=== PATIENT | male | born 2005 | race Hispanic/Latino ===

== ENCOUNTER 2024-04-25 15:46 | Emergency (ER) | payer BC, OTHER ==
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
[2024-04-25] MEDS ORDERED: LIDOCAINE 4% PATCH ONE (16:37)
[2024-04-25 20:34] VITALS: BP 192/97; TEMP 98.2; O2SAT 98
== END 2024-04-25 16:44 | disposition home or self-care (01) ==
LOC: ER 15:46
DX: S39.012A Strain of muscle, fascia and tendon of lower back, initial encounter (principal); V49.40XA Driver injured in collision with unspecified motor vehicles in traffic accident, initial encounter
CPT/HCPCS: 99283; J2001